=== PATIENT | male | born 1950 | race Caucasian/White ===

== ENCOUNTER 2018-04-22 07:42 | Outpatient (CLI) | payer BC, MEDICARE ==
--- NOTE | 2018-04-22 09:04 | MRI ---
MRI LUMBAR SPINE WITHOUT CONTRAST: HISTORY: M54.16, radiculopathy of the lumbar region. COMPARISON: None. FINDINGS: Exam is limited due to habitus and lack of signal. Aortic contour is nonaneurysmal. No retroperiton eal adenopathy. No hydronephrosis. T2 hyperintense parapelvic cysts are present bilaterally. The conus medullaris terminates near the superior endplate of L2. There is a T2 and T1 hyperintense mass at L2, which loses signal on the STIR, suggestive of a hemangioma. The background marrow signal is very heterogeneous. Levels are as follows: L1-L2: Mild disk desiccation. Mild facet arthrosis. No neural foramina or spinal canal narrowing. L2-L3: Mild facet arthrosis. Mild disk desiccation. No neural foramina or spinal canal narrowing. L3-L4: Mild disk desiccation. Low-grade bibasilar posterior disk osteophyte complex. Moderate face t arthrosis. Mild bilateral neural foraminal narrowing. No nerve root abutment is appreciated. L4-L5: Mild disk desiccation. Very mild broad-based posterior disk osteophyte complex, involving th e subforaminal zones. Moderate facet arthrosis. There is mild bilateral neural foraminal narrowing. L5-S1: Moderate facet arthropathy. No neural foraminal or spinal canal narrowing. IMPRESSION: Very low-grade spondylosis of the lumbar spine. POS: CET
== END 2018-04-22 07:43 | disposition home or self-care (01) ==
LOC: BICMRI 07:42
PROVIDERS: ATTEND Nurse Practitioner Family
DX: M47.26 Other spondylosis with radiculopathy, lumbar region (principal)
CPT/HCPCS: 72148

== ENCOUNTER 2018-07-21 12:51 | Day surgery (SDC) | payer BC, MEDICARE ==
[2018-07-20 09:17] VITALS: BMI 38.7
[~2018-07-21 12:51] MED LIST: PROPOFOL 200 MG/20 ML VIAL ONE
[2018-07-21 13:48] LABS: Hemoglobin 10.7 g/dL (14.0-18.0); Mean Corpuscular HGB CONC 31.9 g/dL (32.0-36.0); Mean Corpuscular Hemoglobin 21.5 pg (27.0-31.0); Mean Corpuscular Volume 67.4 fL (78.0-98.0); Mean Platelet Volume 10.3 fL (7.4-10.4); Platelet Count 211 thou/uL (130-400); RBC Distribution Width 14.4 % (11.5-14.5); Red Blood Cell (RBC) Count 4.97 mill/uL (4.70-6.10); White Blood Cell (WBC) Count 5.7 thou/uL (4.8-10.8)
[2018-07-21 13:53] LABS: INR-International Normal Ratio 1.1; PTT 33.6 SEC (22.9-36.1); Prothrombin Time 14.1 SEC (12.0-14.7)
[2018-07-21 14:31] LABS: Anion Gap 10 mmol/L (10-20); BUN (Urea Nitrogen) 12 mg/dL (8.4-25.7); Calc. Creatinine Clearance 156 mL/min (70-130); Carbon Dioxide 25 mmol/L (23-31); Chloride 107 mmol/L (98-107); Estimated GFR-MDRD Greater than 90; Glucose 105 mg/dL (80-115); Potassium 3.9 mmol/L (3.5-5.1); Sodium 138 mmol/L (136-145)
[2018-07-21] MEDS ORDERED: Propofol 500 MG/50 ML VIAL ONE (14:50)
[2018-07-21] MEDS ORDERED: Fentanyl 100 MCG/2 ML VIAL ONE (14:50)
[2018-07-21] MEDS ORDERED: Midazolam HCl 2 mg/2 ml Vial ONE (14:50)
[2018-07-21] MEDS ORDERED: Bupivacaine HCl 0.5%/Epinephrine 1:200,000/PF 30 ml Vial ONE (14:50)
[2018-07-21] MEDS ORDERED: CEFAZOLIN 1 GM VIAL ONE (14:58)
[2018-07-21] MEDS ORDERED: Sodium Chloride 0.9% 100 ML ONE (14:58)
[2018-07-21] MEDS ORDERED: methylPREDNISolone Acetate 40 mg/ml Vial ONE ×2 (15:17→15:42)
[2018-07-21] MEDS ORDERED: Bupivacaine 0.25% HCL 30 ML VIAL ONE (15:17)
--- NOTE | 2018-07-21 16:37 | RAD ---
EXAM: XR Lumbar Spine 2 Or 3 View PROVIDED CLINICAL HISTORY: Placement of pain pump. COMPARISON: None FINDINGS/IMPRESSION: 3 intraoperative fluoroscopic images of the lower lumbar spine are submitted for interpretation. Imag es demonstrate what appear to be stimulation leads overlying the right neural foramina at the L3-4 and L4-5 levels. Correlation with intraoperative findings is recommended.
--- NOTE | 2018-07-21 17:03 | EKG ---
Test Reason : PREOP Blood Pressure : / mmHG Vent. Rate : 060 BPM Atrial Rate : 060 BPM P-R Int : 148 ms QRS Dur : 092 ms QT Int : 436 ms P-R-T Axes : 043 005 015 degrees QTc Int : 436 ms Normal sinus rhythm with sinus arrhythmia Normal ECG No previous ECGs available Confirmed by DR. Pritesh GODINEZ ([id number]) on 07/21/2018 5:03:03 PM Referred By: LENORE Confirmed By:DR. Pritesh GODINEZ
--- NOTE | 2018-07-22 11:52 | OP ---
DATE OF PROCEDURE: 07/21/2018 PREOPERATIVE DIAGNOSES: 1. Chronic pain syndrome. 2. Complex regional pain syndrome. G90.522. POSTOPERATIVE DIAGNOSES: 1. Chronic pain syndrome. 2. Complex regional pain syndrome. G90.522. PROCEDURES PERFORMED: 1. Spinal cord stimulator generator implants. 2. Spinal cord stimulator lead implant x2, dorsal root ganglion leads. 3. Fluoroscopy. 4. Programming. ESTIMATED BLOOD LOSS: 5 mL. SUMMARY OF PROCEDURE: The patient was taken to the procedure room and placed prone on the procedure room table. A time-out was performed. We prepped the lower back using ChloraPrep and sterile drapes were applied. Fluoroscopic images were used to identify the L4-L5 interspace. Lidocaine 2% was used for skin and subcutaneous anesthesia. The 14-gauge supplied Touhy needle was advanced under fluoroscopic guidance using a right paramedian approach. Using loss of resistance to air, the epidural space was accessed. The aspiration was negative for heme or CSF. No paresthesia. A second needle was then placed at L3-L4 using the same right paramedian approach. A four contact DRG electrode was inserted through the needle and advanced under continuous fluoroscopy into the left L3 foramen and separate lead was inserted into the left L4 foramen. The sheath and needles were removed taking care not to move the leads. A small incision was made at the needle entry point, which down to the fat layer. A pocket was then formed by anesthetizing the skin in the right buttock. We used a 10 blade scalpel to make an incision in the right upper buttock and blunt dissected this down to Jeremias's fascia. We made a pocket by blunt dissecting superiorly and inferiorly. We then used a tunneling device from each of the needle entry points to the battery pocket and threaded each leads one by one into the battery pocket site. We connected these to the batteries. Impedances were checked which were all good. Lateral and AP images were taken to ensure proper placement. There was a tension relief loop that was made for both of these leads in the epidural space. Images were saved. Once the batteries were connected to the leads and these were torqued down to affix the leads to the battery, the battery was inserted into the pocket. The fascial layer of the pocket was approximated using 2-0 Vicryl suture in simple interrupted fashion. [place] were used for skin closure and Dermabond was used as an occlusive dressing. The patient was taken to the postop unit with no apparent complications noted at this time. Job ID: [id number]
== END 2018-07-21 17:45 | disposition home or self-care (01) ==
LOC: SDC 12:51
PROVIDERS: ATTEND Specialist
PROC: 00HU3MZ Insertion of Neurostimulator Lead into Spinal Canal, Percutaneous Approach (ICD-10-PCS; principal; 2018-07-21)
PROC: 0JH70DZ Insertion of Multiple Array Stimulator Generator into Back Subcutaneous Tissue and Fascia, Open Approach (ICD-10-PCS; principal; 2018-07-21)
DX: G89.4 Chronic pain syndrome (principal); G90.522 Complex regional pain syndrome I of left lower limb; Z91.09 Other allergy status, other than to drugs and biological substances
CPT/HCPCS: 36415; 72100; 76000; 80048; 85027; 85610; 85730; 93005; 93010; C1767; J0670; J0690; J1030; J2250; J2704; J3010; J3490; S0020